=== PATIENT | female | born 1985 | race Asian ===

== ENCOUNTER 2022-01-28 12:50 | Outpatient (CLI) | payer BC | END 2022-01-28 12:51 | disposition critical access hospital (66) | LOC: EMS 12:50 | DX: M25.572 Pain in left ankle and joints of left foot (principal); M79.672 Pain in left foot; M79.662 Pain in left lower leg; W18.31XA Fall on same level due to stepping on an object, initial encounter; Y93.01 Activity, walking, marching and hiking; Y92.832 Beach as the place of occurrence of the external cause | CPT/HCPCS: A0425; A0427 ==

== ENCOUNTER 2022-01-28 13:03 | Emergency (ER) | payer BC ==
[2022-01-28] MEDS ORDERED: HYDROmorphone 0.5 MG/0.5 ML SYRINGE IVP STA (13:42)
--- NOTE | 2022-01-28 14:00 | XRAY Report ---
PROCEDURE: Tib/Fib LT INDICATIONS: Trauma TECHNIQUE: 2 views of the tibia and fibula were acquired. COMPARISON: Correlation is made with the accompanying ankle plain films, 01/28/2022. FINDINGS: Bones: There is a mildly displaced fracture seen involving the distal tibia. No associated fibular fr acture is identified. Soft tissues: No suspicious soft tissue calcifications or masses. IMPRESSION: Mildly displaced distal tibial fracture. Reviewed by: Rosas Morfin MD on 01/28/2022 12:59 PM TOR Approved by: Rosas Morfin MD on 01/28/2022 12:59 PM TOR Station ID: [id number]
--- NOTE | 2022-01-28 14:01 | XRAY Report ---
PROCEDURE: Ankle 3 View LT INDICATIONS: Trauma TECHNIQUE: 3 views of the ankle were acquired. COMPARISON: Correlation is made with the accompanying tibia and fibula study. FINDINGS: Bones: There is a mildly displaced fracture of the distal tibia. No significant fracture of the dista l fibular can be seen. No definite widening of the ankle syndesmosis can be seen. The talar dome dem onstrates an unremarkable appearance. No suspicious lytic or blastic lesions are seen. Soft tissues: Mild soft tissue swelling is seen. IMPRESSION: Mildly displaced distal tibial fracture. Reviewed by: Rosas Morfin MD on 01/28/2022 1:00 PM TOR Approved by: Rosas Morfin MD on 01/28/2022 1:00 PM TOR Station ID: [id number]
--- NOTE | 2022-01-28 14:08 | ED Physician Documentation ---
PD HPI LOWER EXT INJURY - Stated complaint Stated Complaint: ANKLE INJ - Chief complaint Chief Complaint: Trauma Ext - History obtained from History obtained from: Patient, Family, EMS - Additional information Additional information: The patient comes to the emergency department via EMS for chief complaint of left lower leg pain [place] striking her leg on another rock. Patient denies any other injuries. No prior injury to this leg. The patient was not able to walk after the incident, secondary to the pain. No other complaints at this time. Review of Systems Ten Systems: 10 systems reviewed and negative Constitutional: reports: Reviewed and negative Eyes: reports: Reviewed and negative Ears: reports: Reviewed and negative Nose: reports: Reviewed and negative Throat: reports: Reviewed and negative Cardiac: reports: Reviewed and negative Respiratory: reports: Reviewed and negative GI: reports: Reviewed and negative : reports: Reviewed and negative Skin: reports: Reviewed and negative Musculoskeletal: reports: Extremity pain, Extremity swelling, Pain with weight bearing Neurologic: reports: Reviewed and negative Psychiatric: reports: Reviewed and negative Endocrine: reports: Reviewed and negative Immunocompromised: reports: Reviewed and negative PD PAST MEDICAL HISTORY - Present Medications Home Medications: Ambulatory Orders Medication Instructions Recorded Confirmed HYDROcod/ACETAM 5/325 [[place] 5/325] 1 - 2 tablet PO Q6H PRN #14 tablet 01/28/22 Ondansetron Odt [Zofran] 4 mg TL Q6H PRN #10 tablet 01/28/22 - Allergies Allergies/Adverse Reactions: Allergies Allergy/AdvReac Type Severity Reaction Status Date / Time No Known Drug Allergies Allergy Verified 01/28/22 13:06 PD ED PE NORMAL - Vitals Vital signs reviewed: Yes - General General: Alert and oriented X 3, No acute distress, Well developed/nourished - HEENT HEENT: Atraumatic, PERRL, EOMI, Moist mucous membranes - Neck Neck: Supple, no meningeal sign - Cardiac Cardiac: Strong equal pulses - Respiratory Respiratory: No respiratory distress - Derm Derm: Normal color, Warm and dry, No rash - Extremities Extremities: No deformity, Other (Tenderness palpation over the anteromedial aspect of the patient's distal left anterior tibial area. No obvious deformity. No Point tenderness of the ankle. No tenderness at the knee.) - Neuro Neuro: Alert and oriented X 3 - Psych Psych: Normal mood, Normal affect Results - Vitals Vitals: Vital Signs - 24 hr 01/28/22 13:06 Temperature 36.5 C Heart Rate 74 Respiratory 20 Rate Blood Pressure 136/88 H O2 Saturation 98 Oxygen O2 Source Room air - Rads (name of study) Left ankle x-ray series Radiology: Final report received, See rad report Left tib-fib x-ray series Radiology: Final report received, See rad report PD MEDICAL DECISION MAKING - ED course Complexity details: considered differential, d/w patient ED course: The patient was worked up with x-rays of the tib-fib and ankle and found to have a torus fracture of the distal left tibia without angulation and minimal displacement. She was placed in a posterior mold splint in the ED and given a pair crutches. She had been treated in route with morphine and was given 0.5 mg of Dilaudid here, as well. I have given the patient and her , who are from [facility] a few options for orthopedic follow-up in the [facility]. However, they do have a primary care physician and may seek referral thr gh their PCP instead. I have emphasized to the patient and that it will be important for them to follow-up within the week to have orthopedic evaluation and casting of the leg. I have electronically transmitted a prescription for analgesia to [facility] at the 's request. Departure - Departure Disposition: 01 Home, Self Care Clinical Impression: Tibial fracture Qualifiers: Encounter type: initial encounter Tibia location: shaft Fracture type: closed Fracture morphology: spiral Fracture alignment: nondisplaced Laterality: left Qualified Code(s): S82.245A - Nondisplaced spiral fracture of shaft of left tibia, initial encounter for closed fracture Condition: Stable Instructions: ED Fx Lower Ext Follow-Up: Isael Oh MD [Physician No Access] - River Rabago MD [Physician No Access] - SHARI SAUL DO [Physician No Access] - Prescriptions: HYDROcod/ACETAM 5/325 [[place] 5/325] 1 - 2 tablet PO Q6H PRN #14 tablet PRN Reason: Pain Ondansetron Odt [Zofran] 4 mg TL Q6H PRN #10 tablet PRN Reason: Nausea / Vomiting Comments: Your x-ray shows a break in the lower part of your tibia or "lee bone". You have been placed in a splint and put on crutches because of this. It is very important that you do not bear weight on the broken leg until your orthopedist is cleared you to do so. You should use the crutches anytime you want to get around. It is very important that you follow-up with orthopedics within the week to be reevaluated and have your leg casted. You may follow-up in one of the recommended clinics, or you may go through your primary doctor to be referred to orthopedics for follow-up. Please take the pain medication prescribed as needed. This has been electronically transmitted to [facility] pharmacy in [place], on [address].
[2022-01-28] MEDS ORDERED: HYDROcod/ACETAM 5/325 MG TABLET PO STA (14:43)
[2022-01-28 14:49] VITALS: BP 128/80
== END 2022-01-28 14:47 | disposition home or self-care (01) ==
LOC: ED 13:03
DX: S82.312A Torus fracture of lower end of left tibia, initial encounter for closed fracture (principal); W01.198A Fall on same level from slipping, tripping and stumbling with subsequent striking against other object, initial encounter; Y92.832 Beach as the place of occurrence of the external cause
CPT/HCPCS: 73590; 73610; 96374; 99283; 99284; J1170